=== PATIENT | female | born 1965 | race Caucasian/White ===

== ENCOUNTER 2020-12-07 12:01 | Emergency (ER) | payer OTHER ==
[2020-12-07] MEDS ORDERED: HYDROmorphone 0.5 MG/0.5 ML Syringe IVPUSH ONE (12:19)
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
[2020-12-07] MEDS ORDERED: Sodium Chloride 0.9% 1,000 ML IV SCH (14:30)
[2020-12-07] MEDS ORDERED: HYDROmorphone 1 MG/ML Syringe IVPUSH ONE (14:35)
[2020-12-07] MEDS ORDERED: Propofol 200 MG/20 ML SDV ONE (14:37)
== END 2020-12-07 15:52 | disposition home or self-care (01) ==
LOC: JP.ED 12:01
DX: S52.531A Colles' fracture of right radius, initial encounter for closed fracture (principal); Z72.0 Tobacco use; Z88.8 Allergy status to other drugs, medicaments and biological substances; V43.62XA Car passenger injured in collision with other type car in traffic accident, initial encounter; Y92.410 Unspecified street and highway as the place of occurrence of the external cause
CPT/HCPCS: 29125; 73030; 73090; 76000; 96374; 96376; 99284; J1170; J2704; J7030

== ENCOUNTER 2020-12-13 09:45 | Day surgery (SDC) | payer OTHER ==
[~2020-12-13 09:45] MED LIST: Bupivacaine 0.5% 30 ML SDV ONE; Dexamethasone 4 MG/ML SDV ONE; Glycopyrrolate 0.2 MG/ML 5 ML MDV ONE; Neostigmine Methylsulfate 1 MG/ML 5 ML Syringe ONE; Ondansetron 4 MG/2 ML SDV ONE; Propofol 200 MG/20 ML SDV ONE; Rocuronium 50 MG/5 ML Vial ONE; Succinylcholine 200 MG/10 ML MDV ONE; fentaNYL 250 MCG/5 ML SDV ONE
[2020-12-13] MEDS ORDERED: Nozin Nasal Sanitizer NASBOTH ONE (10:30)
[2020-12-13] MEDS ORDERED: Lactated Ringers 1,000 ML IV SCH (11:00)
[2020-12-13] MEDS ORDERED: ceFAZolin 2 GM in Premix Bag 1 BAG IV ONE (11:15)
[2020-12-13] MEDS ORDERED: Scopolamine 1.5 MG Transdermal Patch TRDERM SCH (12:26)
[2020-12-13] MEDS ORDERED: Midazolam 1 MG/ML 2 ML SDV ONE (13:01)
[2020-12-13] MEDS ORDERED: Lidocaine 0.5% 50 ML SDV ONE (13:01)
[2020-12-13] MEDS ORDERED: Acetaminophen/HYDROcodone 325-5 MG Tab PO PRN (14:23)
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
== END 2020-12-13 15:30 | disposition home or self-care (01) ==
LOC: JP.SDS 09:45
PROVIDERS: ATTEND Specialist
DX: S52.571A Other intraarticular fracture of lower end of right radius, initial encounter for closed fracture (principal); S52.611A Displaced fracture of right ulna styloid process, initial encounter for closed fracture; F17.210 Nicotine dependence, cigarettes, uncomplicated; J45.909 Unspecified asthma, uncomplicated; Z88.0 Allergy status to penicillin; Z88.8 Allergy status to other drugs, medicaments and biological substances; W19.XXXA Unspecified fall, initial encounter
CPT/HCPCS: 25606; 36415; 76000; 80053; 85027; A9270; C1713; J0690; J1100; J2250; J2405; J2704; J3010; J3490; J7120; J0330; J2710

== ENCOUNTER 2020-12-15 08:53 | Emergency (ER) | payer OTHER ==
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
== END 2020-12-15 10:26 | disposition home or self-care (01) ==
LOC: JP.ED 08:53
DX: S50.01XD Contusion of right elbow, subsequent encounter (principal); J45.909 Unspecified asthma, uncomplicated; Z88.5 Allergy status to narcotic agent; Z88.0 Allergy status to penicillin; Z88.4 Allergy status to anesthetic agent; V89.2XXD Person injured in unspecified motor-vehicle accident, traffic, subsequent encounter
CPT/HCPCS: 73080-26-RT; 73080-RT; 99284-25

== ENCOUNTER 2020-12-26 19:42 | Emergency (ER) | payer OTHER ==
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
== END 2020-12-26 22:15 | disposition home or self-care (01) ==
LOC: JP.ED 19:42
DX: F43.10 Post-traumatic stress disorder, unspecified (principal); J45.909 Unspecified asthma, uncomplicated; Z72.0 Tobacco use; Z88.5 Allergy status to narcotic agent; Z88.0 Allergy status to penicillin; Z88.2 Allergy status to sulfonamides
CPT/HCPCS: 99284